=== PATIENT | male | born 1950 | race Caucasian/White ===

== ENCOUNTER → 2018-07-10 | Outpatient (CLI) | payer MEDICARE, SELFPAY ==
--- NOTE | 2018-07-10 08:08 | VDLE_ITS ---
Reason For Study: DVT RIGHT LEFT CFV is compressible, spontaneous, phasic, GSV is normal. competent and demonstrates normal CFV is compressible, spontaneous, phasic, augmentation. competent, and demonstrates normal Procedure augmentation. Exam performed in department. FV is compressible, spontaneous, phasic, competent and demonstrates normal augmentation. POP V is compressible, spontaneous, phasic, competent and demonstrates normal augmentation. T/P Trunk is compressible. PTV is compressible. LT PerV is compressible. L Gastroc V is noncompressible. L Gastroc V is not dilated. Interpretation Summary 1. Left chronic gastroc DVT. Ordering Physician: Bud Gibbs Referring Physician: MAGGY BORJAS Performed By: Angelika Martinez, IBETHCS, RVT
== END | disposition home or self-care (01) ==
LOC: CVS 07:48
PROVIDERS: Family Provider Family Medicine; PCP Family Medicine; Referring Provider Surgery Vascular Surgery; Visit Provider Surgery Vascular Surgery
DX: I82.442 Acute embolism and thrombosis of left tibial vein (principal)
CPT/HCPCS: 93971